=== PATIENT | female | born 1990 | race African-American/Black ===

== ENCOUNTER 2018-05-09 21:17 | Emergency (ER) | payer SELFPAY ==
[~2018-05-09] VITALS: Ht 160 cm; Wt 100.0 kg
[~2018-05-09 21:17] MED LIST: PREN1TAB30
[2018-05-09 21:21] VITALS: BP 120/70; PULSE 119; RESP 18; TEMP 99.5; O2SAT 99
[2018-05-09] MEDS ORDERED: SODIUM CHLORIDE 0.9% FLUSH 10 ML FLUSH IVF PRN (21:45)
[2018-05-09] MEDS ORDERED: ACETAMINOPHEN 1000 MG/100 ML 100 ML IV ONE (21:45)
[2018-05-09] MEDS ORDERED: METOCLOPRAMIDE HCL 10 MG/2 ML VIAL IV PUSH ONE (21:45)
[2018-05-09] MEDS ORDERED: SODIUM CHLOR 0.9% 1000 ML INJ 1,000 ML IV ONE (21:45)
--- NOTE | 2018-05-09 21:51 | PD ---
HPI Chief Complaint: Abdominal Pain Time Seen by Provider: 21:28 Travel History International Travel<30 days: Yes ([place]) Contact w/Intl Traveler<30days: Yes Name of Country Traveled to: [place] Traveled to known affect area: No History of Present Illness HPI Patient is a 27-year-old female who is 9-10 weeks , presents to the ER with multiple complaints. Patient reports that for the past few weeks, she has had a frontal headache. Reports that the headache feels like a sharp and stabbing type sensation to her head, reports that she has photophobia with her symptoms. Also reports nausea with no vomiting with her symptoms. Denies any fevers or chills. Patient reports that she has not taking anything for her headache, as she is 9-10 weeks and was not sure which medication she could take. Patient reports that she is also had increased suprapubic pain. Patient reports that she thinks that she is having bladder spasms and is concerned for possible UTI. Patient denies any dysuria, reports urinary urgency as well as frequency. Patient denies any vaginal discharge or bleeding or any passage of fluid. As per patient's , patient has not follow-up in the [facility] yet, this is her second . Reports that she had delivered her first child at [facility] - she has not seen an sql server dba yet for this . PFSH Past Medical History Asthma: Yes Cancer: No Cardiovascular Problems: No Diminished Hearing: No Endocrine: No Genitourinary: No Musculoskeletal: No Neurologic: No Psychiatric: No Reproductive: No Respiratory: Yes Tetanus Vaccination: Unknown Influenza Vaccination: Yes ?: LMP: 03/02/2018 : 6 Para: 2 Miscarriage: 3 : 0 Dilation and Curettage (D&C): Yes (x2) Social History Alcohol Use: No Tobacco Use: No Substance Use: No Allergies-Medications (Allergen,Severity, Reaction): Coded Allergies: amoxicillin (Unverified Allergy, Mild, HIVES, 05/09/18) penicillin G (Unverified Allergy, Mild, HIVES, 05/09/18) Reported Meds & Prescriptions Reported Meds & Active Scripts Active Reported Vitamin 27-0.8 mg ( Vit W/ Ferrous Fumara) 1 Tab Tab Review of Systems General / Constitutional: No: Fever Eyes: Positive: Photophobia, No: Visual changes HENT: Positive: Headaches, No: Lightheadedness, Sore Throat, Rhinitis, Neck Pain Cardiovascular: No: Chest Pain or Discomfort Respiratory: No: Shortness of Breath Gastrointestinal: No: Abdominal Pain Genitourinary: Positive: Dysuria, Other ("Suprapubic pressure"), No: Discharge , Vaginal Bleeding Musculoskeletal: No: Pain Skin: No Rash Neurologic: No: Weakness Psychiatric: No: Depression Endocrine: No: Polydipsia Hematologic/Lymphatic: No: Easy Bruising Physical Exam Narrative GENERAL: Mild distress SKIN: Focused skin assessment warm/dry. HEAD: Atraumatic. Normocephalic. EYES: Pupils equal and round. No scleral icterus. No injection or drainage. ENT: No nasal bleeding or discharge. Mucous membranes pink and moist. NECK: Trachea midline. No JVD. CARDIOVASCULAR: Regular rate and rhythm. No murmur appreciated. RESPIRATORY: No accessory muscle use. Clear to auscultation. Breath sounds equal bilaterally. GASTROINTESTINAL: Abdomen soft, mildly tender suprapubically, nondistended. Hepatic and splenic margins not palpable. MUSCULOSKELETAL: No obvious deformities. No clubbing. No cyanosis. No edema. NEUROLOGICAL: Awake and alert. No obvious cranial nerve deficits. Motor grossly within normal limits. Normal speech. CN 2- 12 grossly intact with no neurovascular compromise PSYCHIATRIC: Appropriate mood and affect; insight and judgment normal. Data Data Last Documented VS Vital Signs Date Time Temp Pulse Resp B/P (MAP) Pulse Ox O2 Delivery O2 Flow Rate FiO2 05/09/18 21:21 99.5 119 18 120/70 (87) 99 Orders Orders Beta Hcg (Quant/Titer) (05/09/18 21:38) Complete Blood Count With Diff (05/09/18 21:38) Comprehensive Metabolic Panel (05/09/18 21:38) Us Pelvis (Ques Preg/Ectopic) (05/09/18 ) Urinalysis - C+S If Indicated (05/09/18 21:38) Iv Access Insert/Monitor (05/09/18 21:38) Ecg Monitoring (05/09/18 21:38) Sodium Chloride 0.9% Flush (Ns Flush) (05/09/18 21:45) Ed Urine Pregnancytest Poc (05/09/18 21:38) Sodium Chlor 0.9% 1000 Ml Inj (Ns 1000 M (05/09/18 21:45) Metoclopramide Inj (Reglan Inj) (05/09/18 21:45) Acetaminophen 1000 Mg/100 Ml (Ofirmev 10 (05/09/18 21:45) Urine Culture (05/09/18 21:46) Nitrofurantoin Monohyd Macrocr (Macrobid (05/10/18 00:30) Labs Laboratory Tests Test 05/09/18 21:46 05/09/18 21:59 Urine Color LIGHT-YELLOW Urine Turbidity HAZY Urine pH 6.0 Urine Specific [place] 1.005 Urine Protein NEG mg/dL Urine Glucose (UA) NEG mg/dL Urine Ketones NEG mg/dL Urine Occult Blood NEG Urine Nitrite NEG Urine Bilirubin NEG Urine Urobilinogen LESS THAN 2.0 MG/DL Urine Leukocyte Esterase LARGE Urine RBC 1 /hpf Urine WBC 1 /hpf Urine Squamous Epithelial Cells 3 /hpf Urine Bacteria MOD /hpf Microscopic Urinalysis Comment CULTURE INDICATED White Blood Count 6.5 TH/MM3 Red Blood Count 4.32 MIL/MM3 Hemoglobin 12.7 GM/DL Hematocrit 37.5 % Mean Corpuscular Volume 87.0 FL Mean Corpuscular Hemoglobin 29.4 PG Mean Corpuscular Hemoglobin Concent 33.8 % Red Cell Distribution Width 13.6 % Platelet Count 165 TH/MM3 Mean Platelet Volume 9.1 FL Neutrophils (%) (Auto) 76.6 % Lymphocytes (%) (Auto) 8.9 % Monocytes (%) (Auto) 13.5 % Eosinophils (%) (Auto) 0.7 % Basophils (%) (Auto) 0.3 % Neutrophils # (Auto) 5.0 TH/MM3 Lymphocytes # (Auto) 0.6 TH/MM3 Monocytes # (Auto) 0.9 TH/MM3 Eosinophils # (Auto) 0.0 TH/MM3 Basophils # (Auto) 0.0 TH/MM3 CBC Comment DIFF FINAL Differential Comment Blood Urea Nitrogen 9 MG/DL Creatinine 0.76 MG/DL Random Glucose 90 MG/DL Total Protein 7.3 GM/DL Albumin 3.1 GM/DL Calcium Level 9.1 MG/DL Alkaline Phosphatase 45 U/L Aspartate Amino Transf (AST/SGOT) 13 U/L Alanine Aminotransferase (ALT/SGPT) 15 U/L Total Bilirubin 0.3 MG/DL Sodium Level 137 MEQ/L Potassium Level 3.6 MEQ/L Chloride Level 103 MEQ/L Carbon Dioxide Level 23.1 MEQ/L Anion Gap 11 MEQ/L Estimat Glomerular Filtration Rate 111 ML/MIN Human Chorionic Gonadotropin, Quant 61949 MIU/ML MDM Medical Decision Making Medical Screen Exam Complete: Yes Emergency Medical Condition: Yes Medical Record Reviewed: Yes Interpretation(s) Vital Signs Date Time Temp Pulse Resp B/P (MAP) Pulse Ox O2 Delivery O2 Flow Rate FiO2 05/09/18 21:21 99.5 119 18 120/70 (87) 99 Differential Diagnosis Migraine, cephalgia, electrolyte abnormality, nausea and vomiting with , ectopic , UTI Narrative Course Patient is a 27-year-old nontoxic female who presents the emergency room 9-10 weeks with complaints of headaches which has been ongoing for the past few weeks as well as suprapubic tenderness with concerns for UTI. Patient is nontoxic appearing, patient with normal neurological exam. During the course of the patients emergency department visit, the patients history, examination, and differential diagnosis were reviewed with the patient. The patient was placed on a ekg monitor tech with oximetry and frequent blood pressure monitoring. The patient had an IV access obtained and blood work sent for analysis. The patient was initially provided acetaminophen for headache, Reglan for nausea. The patients laboratory studies were reviewed and remarkable for Laboratory Tests Test 05/09/18 21:46 05/09/18 21:59 Urine Color LIGHT-YELLOW (YELLW/STRAW) Urine Turbidity HAZY (CLEAR) Urine pH 6.0 (5.0-8.5) Urine Specific [place] 1.005 (1.002-1.035) Urine Protein NEG mg/dL (NEG-TRACE) Urine Glucose (UA) NEG mg/dL (NEG) Urine Ketones NEG mg/dL (NEG) Urine Occult Blood NEG (NEG) Urine Nitrite NEG (NEG) Urine Bilirubin NEG (NEG) Urine Urobilinogen LESS THAN 2.0 MG/DL (LESS Urine Leukocyte Esterase LARGE (NEG) Urine RBC 1 /hpf (0-3) Urine WBC 1 /hpf (0-5) Urine Squamous Epithelial Cells 3 /hpf (0-5) Urine Bacteria MOD /hpf (NONE) Microscopic Urinalysis Comment CULTURE INDICATED White Blood Count 6.5 TH/MM3 (4.0-11.0) Red Blood Count 4.32 MIL/MM3 (4.00-5.30) Hemoglobin 12.7 GM/DL (11.6-15.3) Hematocrit 37.5 % (35.0-46.0) Mean Corpuscular Volume 87.0 FL (80.0-100.0) Mean Corpuscular Hemoglobin 29.4 PG (27.0-34.0) Mean Corpuscular Hemoglobin Concent 33.8 % (32.0-36.0) Red Cell Distribution Width 13.6 % (11.6-17.2) Platelet Count 165 TH/MM3 (150-450) Mean Platelet Volume 9.1 FL (7.0-11.0) Neutrophils (%) (Auto) 76.6 % (16.0-70.0) Lymphocytes (%) (Auto) 8.9 % (9.0-44.0) Monocytes (%) (Auto) 13.5 % (0.0-8.0) Eosinophils (%) (Auto) 0.7 % (0.0-4.0) Basophils (%) (Auto) 0.3 % (0.0-2.0) Neutrophils # (Auto) 5.0 TH/MM3 (1.8-7.7) Lymphocytes # (Auto) 0.6 TH/MM3 (1.0-4.8) Monocytes # (Auto) 0.9 TH/MM3 (0-0.9) Eosinophils # (Auto) 0.0 TH/MM3 (0-0.4) Basophils # (Auto) 0.0 TH/MM3 (0-0.2) CBC Comment DIFF FINAL Differential Comment Blood Urea Nitrogen 9 MG/DL (7-18) Creatinine 0.76 MG/DL (0.50-1.00) Random Glucose 90 MG/DL (74-106) Total Protein 7.3 GM/DL (6.4-8.2) Albumin 3.1 GM/DL (3.4-5.0) Calcium Level 9.1 MG/DL (8.5-10.1) Alkaline Phosphatase 45 U/L (45-117) Aspartate Amino Transf (AST/SGOT) 13 U/L (15-37) Alanine Aminotransferase (ALT/SGPT) 15 U/L (10-53) Total Bilirubin 0.3 MG/DL (0.2-1.0) Sodium Level 137 MEQ/L (136-145) Potassium Level 3.6 MEQ/L (3.5-5.1) Chloride Level 103 MEQ/L (98-107) Carbon Dioxide Level 23.1 MEQ/L (21.0-32.0) Anion Gap 11 MEQ/L (5-15) Estimat Glomerular Filtration Rate 111 ML/MIN (>89) Human Chorionic Gonadotropin, Quant [id number] MIU/ML (0-5) Radiology studies were reviewed and remarkable for Last Impressions Pelvis Ultrasound 05/09/18 0000 Signed Impressions: CONCLUSION: 1. Intrauterine gestational sac corresponding with a 10 1/2 week gestation wit h positive heart tones Patient reevaluated, patient feeling much better at this time. Patient with resolution of headache. I reviewed all labs and all studies as well as all incidental findings with patient in detail, patient does have a urinary tract infection, will treat with Macrobid. She will follow-up with all cultures from today. Patient will follow-up with her [facility], she will return to the ER as needed. Diagnosis Primary Impression: Cephalgia Qualified Codes: R51 - Headache Additional Impression: UTI (urinary tract infection) Qualified Codes: N30.00 - Acute cystitis without hematuria Patient Instructions: General Instructions Additional Instructions: Please provide patient with a copy of their lab work and studies at discharge* * Please follow up with your primary care doctor in 2-3 days Return to the ER if symptoms worsen or progress Return to the ER as needed Please follow-up with your [facility] as soon as possible Pelvic rest until you are seen and cleared by your [facility] Med/Other Pt SpecificInfo: Prescription(s) given Scripts Nitrofurantoin Monohydrate Macrocrystals (Macrobid) 100 Mg Cap 100 MG PO BID for Infection for 10 Days, #20 CAP 0 Refills Prov: Adamaris Cruz DO 05/10/18 Disposition: 01 DISCHARGE HOME Condition: Stable Adamaris Cruz DO May 09, 2018 21:51
[2018-05-09 22:13] LABS: BASOPHIL % 0.3 % (0.0-2.0); EOSINOPHIL % 0.7 % (0.0-4.0); HEMATOCRIT 37.5 % (35.0-46.0); HEMOGLOBIN 12.7 GM/DL (11.6-15.3); LYMPH % 8.9 % (9.0-44.0); LYMPHOCYTE # 0.6 TH/MM3 (1.0-4.8); MEAN CORPUSCULAR HEMOGLOBIN 29.4 PG (27.0-34.0); MEAN CORPUSCULAR HGB CONC 33.8 % (32.0-36.0); MEAN PLATELET VOLUME 9.1 FL (7.0-11.0); MONO % 13.5 % (0.0-8.0); MONOCYTE # 0.9 TH/MM3 (0-0.9); NEUT % 76.6 % (16.0-70.0); PLATELET COUNT 165 TH/MM3 (150-450); RED BLOOD COUNT 4.32 MIL/MM3 (4.00-5.30); RED CELL DISTRIBUTION WIDTH 13.6 % (11.6-17.2); WHITE BLOOD COUNT 6.5 TH/MM3 (4.0-11.0)
[2018-05-09 22:23] LABS: BACTERIA, URINE MOD /hpf; BILIRUBIN, URINE NEG (NEG); BLOOD, URINE NEG (NEG); GLUCOSE,URINE NEG (NEG); KETONE, URINE NEG (NEG); NITRITE,URINE NEG (NEG); SQUAMOUS EPITHELIAL CELL URINE 3 /hpf (0-5); URINE COLOR LIGHT-YELLOW (YELLW/STRAW); URINE LEUKOCYTE ESTERASE LARGE (NEG)
[2018-05-09 22:30] LABS: ALBUMIN 3.1 GM/DL (3.4-5.0); AST (GOT) 13 U/L (15-37); BICARBONATE 23.1 MEQ/L (21.0-32.0); BLOOD UREA NITROGEN 9 MG/DL (7-18); CALCIUM 9.1 MG/DL (8.5-10.1); CHLORIDE 103 MEQ/L (98-107); CREATININE 0.76 MG/DL (0.50-1.00); GLOMERULAR FILTRATION RATE 111 ML/MIN (>89); GLUCOSE,RANDOM 90 MG/DL (74-106); SODIUM (NA) 137 MEQ/L (136-145)
[2018-05-09 22:32] LABS: ALT (GPT) 15 U/L (10-53)
[2018-05-09 22:49] LABS: ALKALINE PHOSPHATASE 45 U/L (45-117); TOTAL BILIRUBIN ADULT 0.3 MG/DL (0.2-1.0); TOTAL PROTEIN 7.3 GM/DL (6.4-8.2)
--- NOTE | 2018-05-10 00:12 | RADRPT ---
EXAM DATE: 05/10/2018 12:04 AM EDT AGE/SEX: 27 years / Female INDICATIONS: Headache. Abdominal pain. CLINICAL DATA: This is the patient's initial encounter. Patient reports that signs and symptoms have been present for 1 day and indicates a pain score of 3/10. MEDICAL/SURGICAL HISTORY: . . COMPARISON: No prior exams available for comparison. No external comparison. MEASUREMENTS: Uterus:__16.5 x 9.4 x 7.4 cm Endometrial Stripe:__>20 mm Right Ovary:__ 3.4 x 3.4 x 2.2 cm Left Ovary:__ Not visualized. FINDINGS: Uterus: The myometrium has homogeneous echotexture without mass. Gestational sac measuring 6.9 x 2.7 x 5.3 cm corresponding with a 10 week 5 day gestation. Burley-rump length measuring 3.4 cm correspond ing with a 10 week 2 day gestation . Heart tones are 1 76 bpm. Right Ovary: Prominent ovarian cyst without any concerning mass Left Ovary: Could not be identified Other: No free fluid. CONCLUSION: 1. Intrauterine gestational sac corresponding with a 10 1/2 week gestation with positive heart tones Electronically signed by: Inder Oswald MD 05/10/2018 12:11 AM EDT
[2018-05-10] MEDS ORDERED: NITROFURANTOIN MONOHYD MACROCR 100 MG CAP PO ONE (00:30)
[2018-05-10] MEDS ORDERED: MACR100C2 PO (00:50)
== END 2018-05-10 01:14 | disposition home or self-care (01) ==
LOC: NEPE 21:17
DX: O26.891 Other specified pregnancy related conditions, first trimester (principal); R51 Headache; R11.0 Nausea; O23.11 Infections of bladder in pregnancy, first trimester; Z3A.09 9 weeks gestation of pregnancy; Z87.09 Personal history of other diseases of the respiratory system
CPT/HCPCS: 76700; 80053; 81001; 84702; 84703; 85025; 87086; 96361; 96374; 99284; J0131; J2765; J7030